=== PATIENT | female | born 1960 | race African-American/Black ===

== ENCOUNTER 2020-09-04 16:14 | Inpatient (IN) | payer OTHER ==
[2020-09-04 17:10] VITALS: BMI 27.9
[2020-09-04] MEDS ORDERED: ONDANSETRON *ODT* 4 MG TABLET SL PRN (19:22)
[2020-09-04] MEDS ORDERED: MAGNESIUM CITRATE 300 ML BOTTLE PO PRN (19:22)
[2020-09-04] MEDS ORDERED: MENTHOL/PHENOL 1 EACH UD MM PRN (19:22)
[2020-09-04] MEDS ORDERED: ACETAMINOPHEN 325 MG TABLET (FP) PO PRN (19:22)
[2020-09-04] MEDS ORDERED: BISMUTH SUBSALICYLATE 524 MG/30 ML UD PO PRN (19:22)
[2020-09-04] MEDS ORDERED: MAG HYDROX/AL HYDROX/SIMETH 30 ML UNIT-DOSE CUP PO PRN (19:22)
[2020-09-04] MEDS ORDERED: hydrOXYzine PAMOATE 25 MG CAPSULE (FP) PO PRN (19:22)
[2020-09-04] MEDS ORDERED: IBUPROFEN 400 MG TABLET (FP) PO PRN (19:22)
[2020-09-04] MEDS ORDERED: NICOTINE POLACRILEX 2 MG GUM BUC PRN (19:22)
[2020-09-04] MEDS ORDERED: diazePAM 5 MG TABLET PO PRN (19:24)
[2020-09-04] MEDS ORDERED: cloNIDine HCL 0.1 MG TABLET PO PRN (20:31)
[2020-09-04] MEDS ORDERED: METHADONE HCL 10 MG TABLET (FOR DETOX USE ONLY) PO ONE (20:31)
[2020-09-04] MEDS ORDERED: MELATONIN 5 MG TABLETS PO SCH (22:00)
[2020-09-04] MEDS: diazePAM 5 MG TABLET PO SCH (22:31)
[2020-09-04] MEDS: THIAMINE HCL 100 MG TABLET (FP) PO SCH (22:33)
[2020-09-05] MEDS: diazePAM 5 MG TABLET PO SCH ×4 (05:30→22:31)
[2020-09-05] MEDS ORDERED: METHADONE HCL 10 MG TABLET (FOR DETOX USE ONLY) PO ONE (10:00)
[2020-09-05] MEDS ORDERED: METHADONE HCL 5 MG TABLET (FOR DETOX USE ONLY) PO ONE (10:00)
[2020-09-05] MEDS: PRENATAL VITAMINS W/ FOLIC ACID TABLET (FP) PO SCH (10:20)
[2020-09-05 10:44] LABS: HEMATOCRIT 40.4 % (32.4-45.2); HEMOGLOBIN 13.8 GM/dL (10.7-15.3); MCH 26.3 pg (25.7-33.7); MCHC 34.1 g/dl (32.0-36.0); MEAN CELL VOLUME 77.2 fl (80-96); MEAN PLT VOLUME 7.6 fl (7.5-11.1); PLATELET COUNT 288 K/MM3 (134-434); RBC 5.24 M/mm3 (3.60-5.2); WHITE BLOOD COUNT 10.8 K/mm3 (4.0-10.0)
[2020-09-05 11:24] LABS: POTASSIUM 4.3 mmol/L (3.5-5.1)
[2020-09-05 11:40] LABS: BLOOD UREA NITROGEN 7.7 mg/dL (7-18)
[2020-09-05 11:42] LABS: CALCIUM 9.3 mg/dL (8.5-10.1)
[2020-09-05 11:43] LABS: ALBUMIN 3.5 g/dl (3.4-5.0); BILIRUBIN,TOTAL 0.4 mg/dL (0.2-1); CREATININE 0.7 mg/dL (0.55-1.3); HIV INTERPRETATION NEGATIVE (NEGATIVE)
[2020-09-05] MEDS: SERTRALINE HCL 50 MG TABLET (FP) PO SCH (13:42)
[2020-09-05] MEDS: LISINOPRIL 10 MG TABLET PO SCH (16:05)
[2020-09-05] MEDS: MELATONIN 5 MG TABLETS PO SCH (22:32)
[2020-09-05] MEDS: THIAMINE HCL 100 MG TABLET (FP) PO SCH (22:32)
[2020-09-05] MEDS: MAGNESIUM HYDROX 2400MG/30ML ORAL SUSPENSION 30 ML CUP PO PRN (22:33)
[2020-09-06] MEDS: ACETAMINOPHEN 325 MG TABLET (FP) PO PRN ×2 (06:42→20:17)
[2020-09-06] MEDS: diazePAM 5 MG TABLET PO SCH ×3 (07:27→22:20)
[2020-09-06] MEDS ORDERED: METHADONE HCL 10 MG TABLET (FOR DETOX USE ONLY) PO ONE (10:00)
[2020-09-06] MEDS: SERTRALINE HCL 50 MG TABLET (FP) PO SCH (10:17)
[2020-09-06] MEDS: LISINOPRIL 10 MG TABLET PO SCH ×3 (10:17→22:19)
[2020-09-06] MEDS: PRENATAL VITAMINS W/ FOLIC ACID TABLET (FP) PO SCH (10:17)
[2020-09-06] MEDS: MAGNESIUM HYDROX 2400MG/30ML ORAL SUSPENSION 30 ML CUP PO PRN (14:25)
[2020-09-06] MEDS ORDERED: ONDANSETRON *ODT* 4 MG TABLET SL ONE (17:37)
[2020-09-06] MEDS ORDERED: TRIMETHOBENZAMIDE HCL 200MG/2ML INJ IM ONE (19:14)
[2020-09-06] MEDS: METHOCARBAMOL 500 MG TABLET PO PRN (20:17)
[2020-09-06] MEDS: MELATONIN 5 MG TABLETS PO SCH (22:19)
[2020-09-06] MEDS: THIAMINE HCL 100 MG TABLET (FP) PO SCH (22:19)
[2020-09-07] MEDS: diazePAM 5 MG TABLET PO SCH ×2 (06:02→18:09)
[2020-09-07] MEDS: METHOCARBAMOL 500 MG TABLET PO PRN (09:53)
[2020-09-07] MEDS: PRENATAL VITAMINS W/ FOLIC ACID TABLET (FP) PO SCH (09:54)
[2020-09-07] MEDS: SERTRALINE HCL 50 MG TABLET (FP) PO SCH (09:57)
[2020-09-07] MEDS ORDERED: METHADONE HCL 5 MG TABLET (FOR DETOX USE ONLY) PO ONE (10:00)
[2020-09-07] MEDS ORDERED: METHADONE HCL 10 MG TABLET (FOR DETOX USE ONLY) PO ONE (10:00)
[2020-09-07] MEDS: LISINOPRIL 10 MG TABLET PO SCH ×2 (10:56→22:27)
[2020-09-07] MEDS ORDERED: DICYCLOMINE HCL 10 MG CAPSULE PO ONE (14:32)
[2020-09-07] MEDS ORDERED: amLODIPine BESYLATE 10 MG TABLET (FP) PO SCH (15:30)
[2020-09-07] MEDS ORDERED: PATIENT'S OWN MEDICATION (NON-FORMULARY) (Amiloride Hcl [Amiloride Hcl] 5 MG Tablet) PO SCH (15:30)
[2020-09-07] MEDS ORDERED: cloNIDine HCL 0.1 MG TABLET PO PRN (15:38)
[2020-09-07] MEDS: amLODIPine BESYLATE 10 MG TABLET (FP) PO SCH (16:12)
[2020-09-07] MEDS: THIAMINE HCL 100 MG TABLET (FP) PO SCH (22:27)
[2020-09-07] MEDS: MELATONIN 5 MG TABLETS PO SCH (22:28)
[2020-09-07] MEDS: FAMOTIDINE 20 MG TABLET PO SCH (22:28)
[2020-09-08] MEDS ORDERED: diazePAM 5 MG TABLET PO ONE (06:00)
[2020-09-08] MEDS: LISINOPRIL 10 MG TABLET PO SCH (09:34)
[2020-09-08] MEDS: PRENATAL VITAMINS W/ FOLIC ACID TABLET (FP) PO SCH (09:34)
[2020-09-08] MEDS: FAMOTIDINE 20 MG TABLET PO SCH (09:34)
[2020-09-08] MEDS: amLODIPine BESYLATE 10 MG TABLET (FP) PO SCH (09:34)
[2020-09-08] MEDS: SERTRALINE HCL 50 MG TABLET (FP) PO SCH (09:35)
[2020-09-08 09:54] VITALS: BP 128/93; PULSE 123; TEMP 97.8
== END 2020-09-08 10:14 | disposition home or self-care (01) | DRG 773 ==
LOC: YASAS 16:14 → Y6N 21:16
PROVIDERS: ADMIT Allergy & Immunology; ATTEND Allergy & Immunology
PROC: HZ2ZZZZ Detoxification Services for Substance Abuse Treatment (ICD-10-PCS; principal; 2020-09-04)
DX: F11.23 Opioid dependence with withdrawal (principal); F10.230 Alcohol dependence with withdrawal, uncomplicated; F17.210 Nicotine dependence, cigarettes, uncomplicated; F19.282 Other psychoactive substance dependence with psychoactive substance-induced sleep disorder; F19.280 Other psychoactive substance dependence with psychoactive substance-induced anxiety disorder; F19.24 Other psychoactive substance dependence with psychoactive substance-induced mood disorder; F32.9 Major depressive disorder, single episode, unspecified; I10 Essential (primary) hypertension; E03.9 Hypothyroidism, unspecified
CPT/HCPCS: 36415; 80053; 82962; 85027; 86780; 87389; C9803; J0735; Q0162; U0003